=== PATIENT | female | born 1975 | race Caucasian/White ===

== ENCOUNTER 2018-04-08 11:49 | Emergency (ER) | payer BC ==
[~2018-04-08] VITALS: Ht 162.6 cm; Wt 61.2 kg
[2018-04-08 12:02] VITALS: BP_SYST 130
[2018-04-08] MEDS ORDERED: HYDROcodone/ACETAMIN 10-325 MG TAB PO ONE (12:45)
[2018-04-08 13:38] VITALS: BP_SYST 130
== END 2018-04-08 13:38 | disposition home or self-care (01) ==
LOC: SED 11:49
DX: S93.502A Unspecified sprain of left great toe, initial encounter (principal); R03.0 Elevated blood-pressure reading, without diagnosis of hypertension; W19.XXXA Unspecified fall, initial encounter; Y93.01 Activity, walking, marching and hiking; Y92.89 Other specified places as the place of occurrence of the external cause; Y99.8 Other external cause status
CPT/HCPCS: 99284